=== PATIENT | male | born 1975 | race African-American/Black ===

== ENCOUNTER → 2018-07-24 | Outpatient (CLI) | payer BC, OTHER ==
[~2018-07-24] MED LIST: BENICAR20 MG; HYDROCHLOROTHIA25 M1 PO; LOPRESSOR100 MG; NEXIUM40 MG PO; NORCO 5-325 TA1 EACH PO; PREVACID; ZOFRAN ODT4 MG PO
== END ==
LOC: ULTRA 14:40
DX: M79.89 Other specified soft tissue disorders (principal); M79.604 Pain in right leg; M79.605 Pain in left leg

== ENCOUNTER 2020-01-05 21:52 | Emergency (ER) | payer BC, OTHER ==
[~2020-01-05] VITALS: Ht 165.1 cm; Wt 99.8 kg
[2020-01-05 23:01] LABS: ABSOLUTE NEUTROPHILS 14.5 thou/uL (1.4-8.2); BASOPHILS 0.4 % (0.0-2.0); EOSINOPHILS 0.1 % (0.0-3.0); HEMATOCRIT 40.2 % (42.0-52.0); HEMOGLOBIN 13.7 gm/dL (14.0-18.0); LYMPHOCYTES 6.4 % (24.0-44.0); MCH 31.6 pg (26.0-34.0); MCHC 34.1 g/dL (28.0-37.0); MCV 92.8 fL (80.0-100.0); MONOCYTES 6.2 % (1.0-8.0); PLATELET COUNT 197 thou/uL (150-400); POLYS 86.9 % (36.0-66.0); RBC 4.33 mil/uL (4.50-6.00); RDW 13.3 % (10.5-14.5)
[2020-01-05 23:12] LABS: ANION GAP 10 mmol/L (7-16); BUN 12 mg/dL (7-18); CALCIUM 9.2 mg/dL (8.5-10.1); CHLORIDE 97 mmol/L (98-107); CO2 25 mmol/L (21-32); CREATININE 1.2 mg/dL (0.7-1.3); GLUCOSE 101 mg/dL (74-106); POTASSIUM 4.4 mmol/L (3.5-5.1); SODIUM 132 mmol/L (136-145)
[2020-01-05 23:22] LABS: ALBUMIN 4.1 g/dL (3.4-5.0); MAGNESIUM 1.8 mg/dL (1.8-2.4); SGOT 47 U/L (15-37); SGPT 33 U/L (30-65); TOTAL BILIRUBIN 0.9 mg/dL (<0.1-1.0); TOTAL PROTEIN 8.5 g/dL (6.4-8.2); TROPONIN-I <0.06 ng/mL (<0.06)
[2020-01-06 00:55] LABS: URINE BILIRUBIN NEGATIVE (Negative); URINE BLOOD TRACE (Negative); URINE CLARITY CLEAR; URINE COLOR YELLOW; URINE GLUCOSE-RANDOM* NEGATIVE (Negative); URINE KETONES NEGATIVE (Negative); URINE LEUKOCYTES-REFLEX NEGATIVE (Negative); URINE NITRITE-REFLEX NEGATIVE (Negative); URINE PROTEIN (DIPSTICK) NEGATIVE (Negative)
[2020-01-06 02:10] VITALS: BP 132/96
--- NOTE | 2020-01-06 07:54 | EKG ---
[facility] [place] [address] ELECTROCARDIOGRAM REPORT Name: KATHYCESILIA Room #: DEP Darrian#: [id number] Admission: 01/05/20 Attend Phys: Discharge: 01/06/20 Date of : 79 Report #: [id number] THIS REPORT FOR: cc: Jake Jimenez MD, Neal A. MD Lundgren,Sarthak Louis MD [facility] ~ THIS REPORT FOR: //name// [facility] ED Test Date: 2020-01-05 Test Time: 22:22:04 Pat Name: CESILIA CHAVEZ Department: Room: Gender: Public Relations Officer: NO : 1975 Requested By: Niko Cooley Order Number: [id number] MD: Sarthak Rossi Measurements Intervals [place] Rate: 87 P: 48 FL: 167 QRS: -6 QRSD: 94 T: -2 QT: 318 QTc: 383 Interpretive Statements Sinus rhythm RSR' in V1 or V2, probably normal variant Nonspecific T wave abnormality Artifact in lead(s) I,III,aVR,aVL,aVF,V1,V2 Compared to ECG 09/27/2014 03:29:32 T-wave abnormality now present Electronically Signed On 01-06-2020 7:52:32 CDT by Sarthak Rossi [email or web address] <ELECTRONICALLY SIGNED> By: Sarthak Rossi MD, [facility] 01/06/20 [id number] 21 21 Sarthak Rossi MD, [facility] /EPI
== END 2020-01-06 02:13 | disposition home or self-care (01) ==
LOC: ER 21:52
PROVIDERS: Emergency Medicine
DX: J02.0 Streptococcal pharyngitis (principal); I10 Essential (primary) hypertension; K21.9 Gastro-esophageal reflux disease without esophagitis; Z03.818 Encounter for observation for suspected exposure to other biological agents ruled out

== ENCOUNTER → 2020-04-19 | Outpatient (CLI) | payer BC, OTHER | LOC: LAB 08:20 | PROVIDERS: ATTEND Pediatrics | DX: U07.1 COVID-19 (principal) ==

== ENCOUNTER → 2020-05-03 | Outpatient (CLI) | payer BC, OTHER | LOC: LAB 12:31 | PROVIDERS: ATTEND Pediatrics | DX: U07.1 COVID-19 (principal) ==

== ENCOUNTER → 2021-03-18 | Outpatient (CLI) | payer BC, OTHER | LOC: ULTRA 09:37 | PROVIDERS: ATTEND Nurse Practitioner | DX: K76.0 Fatty (change of) liver, not elsewhere classified (principal) ==